=== PATIENT | female | born 2000 | race Caucasian/White ===

== ENCOUNTER 2018-06-09 19:30 | Inpatient (IN) ==
[2018-06-09] MEDS ORDERED: Naloxone 0.4 MG/ML INJ IVP PRN (22:32)
[2018-06-09] MEDS ORDERED: Ondansetron 4 MG/2 ML VIAL IVP PRN (22:36)
[2018-06-09 23:14] LABS: Basophils % 0.8 %; Eosinophils # 0.1 K/mcL (0.0-0.6); Eosinophils % 1.3 %; Hematocrit 37.7 % (35.3-44.9); Hemoglobin 12.2 g/dL (11.5-15.4); Immature Granulocytes % 0.5 % (0-4); Lymphocytes # 1.9 K/mcL (0.6-4.6); Lymphocytes % 49.2 %; Mean Corpuscular HGB Conc 32.4 g/dL (31.6-35.5); Mean Corpuscular Hemoglobin 27.9 pg (28.0-33.3); Mean Corpuscular Volume 86.1 fL (83.0-100.0); Monocytes # 0.5 K/mcL (0.0-1.3); Monocytes % 11.7 %; Neutrophils # 1.4 K/mcL (1.6-8.9); Platelet Count 222 K/mcL (140-400); Red Blood Count 4.38 M/mcL (3.82-4.97); Red Cell Distribution Width 15.2 % (11.5-14.5); Segmented Neutrophils % 36.5 %
[2018-06-09 23:26] LABS: INR 1.3; Prothrombin Time 14.6 Seconds (9.4-12.1)
[2018-06-09 23:29] LABS: Activated Partial Thrombo Time 40.4 Seconds (26.0-36.0)
[2018-06-09 23:37] LABS: Amylase 23 Units/L (29-103); Lipase 51 Units/L (11-82)
[2018-06-09 23:39] LABS: Alanine Aminotransferase > 500 Units/L (7-52); Albumin 2.6 g/dL (3.5-5.7); Albumin/Globulin Ratio 1.1 (1.1-2.2); Alkaline Phosphatase 252 Units/L (34-104); Aspartate Amino Transferase 832 Units/L (13-39); BUN/Creatinine Ratio 6 (6-26); Bilirubin,Direct 8.6 mg/dL (0.0-0.2); Bilirubin,Indirect 5.1 mg/dL (0.0-1.2); Bilirubin,Total 13.7 mg/dL (0.3-1.0); Blood Urea Nitrogen 3 mg/dL (6-20); Calcium 7.4 mg/dL (8.6-10.3); Carbon Dioxide 26 mEq/L (23-29); Chloride 106 mEq/L (98-107); Globulin 2.4 g/dL (2.4-3.5); Glucose 99 mg/dL (70-105); Magnesium 1.7 mg/dL (1.6-2.6); Osmolality,Calculated 283 (280-300); Potassium 3.5 mEq/L (3.5-5.1); Sodium 138 mEq/L (136-145); eGFR For Non-African Americans > 60 (> 60)
[2018-06-09 23:41] LABS: Platelet Estimate Normal (Normal); Reactive Lymphocytes Present (Not Present)
[2018-06-10 00:01] LABS: Hepatitis B Surface Antigen Nonreactive (Nonreactive); Hepatitis C Virus Antibody Nonreactive (Nonreactive)
--- NOTE | 2018-06-10 00:01 | Internal Med History&Physical ---
Date of Encounter: 06/09/18 Time of Encounter: 21:50 Internal Medicine - H&P: HPI Chief complaint: RUQ pain; jaundice Admitted From: Hospital to Hospital Transfer Plans for Post Hospital Care: Home History of present illness: Ms. Arriaga is a 18 year old female who presents to [facility] in transfer from [facility] for concerns of acute hepatitis and possible liver failure. Patient presented there with right upper quadrant abdominal pain and jaundice for several days. She has had some nausea, vomiting, and worsening jaundice. This prompted her to go to the ER where she had routine labs performed indicating acute hepatitis with possible hepatic failure. Phone calls ere made to the transfer center requesting transfer to [facility]. The case was discussed with the daytime hospitalist and Dr. Massey. Repeat labs were performed as requested by Dr. Massey. The patient was then transferred here to [facility] as n oted and requested by Dr. Massey and the daytime hospitalist. Upon arrival to [facility], I saw the patient at the bedside. She appears jaundiced, mildly dehydrated, and ill-appearing but nontoxic. She admits to heavy alcohol abuse since the age of 14 yo until last year. She has been essentially alcohol free since last year. However, since then, she has been using drugs in the form of snorting fentanyl, injecting ampheatmines and opiates, and oral opiates as well. She last used roughly a month ago she reports. However, her tox screen at [facility] was positive for opiates and amphetamines. She was also positive for marijuana. She denies any alcohol use presently. She does smoke. Her boyfriend is present at bedside, and they both confirm that he was recently hospitalized here with acute hepatitis A infection and chronic hepatitis C infection. She has never been tested for hepatitis A, B, or C. I reviewed her labs and imaging studies at [facility]. Her CT of the abdomen revealed normal liver, but she does have some mild pancreatitis findings on imaging. Of note, her lipase was normal, however. Furthermore, she is adamant that she has not had any alcohol use in over a year. She was honest and forthright with her IV drug abuse. I counseled patient and her boyfriend on the need to abstain from drugs and alcohol. Additionally, she and he would both benefit from hepatitis C treatment in the future should they remain abstinent of drugs and alcohol. Past Med Surg Social Fam HX - Past Medical History Attestation: Yes The following information was validated with the patient. Source: patient, other ([facility] records) Medical history: no medical history Additional medical history: IV drug abuse Psychiatric history: anxiety, depression - Past Surgical History Surgical History: other Additional surgical history: tonsilectomy - Social History Smoking Status: Current some day smoker Smokeless Tobacco Status: No Alcohol use: none Drug use: opiates, marijuana, methamphetamine, IV Drug Use Current living situation: Home - Independent Activity Level: Independent ambulation Recent Out of Country Travel Within the Last 8 Weeks: No - Family History Mother Living Status: Still Living Hx Family GI Disorders: No Father Living Status: Still Living Hx Family GI Disorders: No - Additional Family History Additional family history: exposed to boyfriend who was recently hospitalized with acute Hepatitis A infection and chronic Hepatitis C Internal Medicine - H&P: Meds Allergy/AdvReac Type Severity Reaction Status Date / Time No Known Allergies Allergy Verified 06/09/18 22:02 - Constitutional Constitutional: fatigue, malaise, no chills, no fever(s), no night sweats - EENT Eyes: no blurry vision, no change in vision Ears: no ear pain, no tinnitus Nose, mouth and throat: no nasal congestion, no sinus pressure, no sore throat - Cardiovascular Cardiovascular ROS IM: no chest pain, no dyspnea, no orthopnea, no syncope - Respiratory Respiratory: no cough, no hemoptysis, no chest congestion, no excessive phlegm production, no change in phlegm color - Gastrointestinal Gastrointestinal: abdominal pain (RUQ), constipation, heartburn, nausea, vomiting, no diarrhea, no hematemesis, no hematochezia, no melena - Genitourinary Genitourinary: abnormal menses, no dysuria, no flank pain, no hematuria - Musculoskeletal Musculoskeletal ROS IM: myalgias, no arthralgias, no back pain - Integumentary Integumentary IM: jaundice, no rash, no unusual bruising - Neurological Neurological ROS: no dizziness, no focal weakness, no frequent falls, no headache(s) - Psychiatric Psychiatric: no anxiety, no depression - Endocrine Endocrine IM: no polydipsia, no polyphagia, no polyuria - Hematologic/Lymphatic Hematologic/Lymphatic: no easy bruising - Allergic/Immunologic Allergic/Immunologic: no wheezing, no GI upset with certain foods - Constitutional Vitals: Temp Pulse Resp BP Pulse Ox 98.3 F 80 20 119/85 96 06/09/18 21:25 06/09/18 21:25 06/09/18 21:25 06/09/18 21:25 06/09/18 21:25 General appearance: Present: cooperative, mild distress, A&O X 3, answers questions appropriately Exam: In mild pain but noon-toxic; appears jaundiced - Head Head exam: Present: atraumatic, normal inspection - Eye Eye exam: Present: EOMI, PERRL, scleral icterus Pupils: Present: normal accommodation - ENT ENT exam: Present: mucous membranes dry, normal exam, normal oropharynx - Neck Neck exam general surgery: Present: full ROM, supple. Absent: tenderness, nuchal rigidity, thyromegaly - Respiratory Respiratory exam: Present: CTAB. Absent: chest wall tenderness, rales, respiratory distress, rhonchi, wheezes - Cardiovascular Cardiovascular exam: Present: RRR, +S1, +S2. Absent: diastolic murmur, systolic murmur - GI/Abdominal GI/Abdominal exam: Present: normal bowel sounds, tenderness (RUQ), no peritoneal signs. Absent: guarding, hepatomegaly, mass, rebound, splenomegaly - Extremities Exam Extremities exam: Present: full ROM, normal capillary refill, warm, radial pulses palpable and symmetrical. Absent: calf tenderness, pedal edema, tenderness - Back Exam Back exam: Present: normal inspection. Absent: CVA tenderness (L), CVA tenderness (R) - Neurological Exam Neurological exam: Present: alert, CN II-XII intact, oriented X3, no focal deficits, strengths equal and symetr throughout - Psychiatric Psychiatric exam: Present: normal affect, normal mood - Skin Skin exam: Present: dry, intact, warm Additional comments: jaundiced Internal Med - H&P Results - Labs CBC & Chem 7: 06/09/18 22:46 06/09/18 22:46 Labs: Short CBC 06/09/18 Range/Units 22:46 WBC 3.9 L (4.3-11.1) K/mcL Hgb 12.2 (11.5-15.4) g/dL Hct 37.7 (35.3-44.9) % Plt Count 222 (140-400) K/mcL Neutrophils # 1.4 L (1.6-8.9) K/mcL BMP 06/09/18 22:46 Sodium 138 Potassium 3.5 Chloride 106 Carbon Dioxide 26 BUN 3 L Creatinine 0.51 L Glucose 99 Calcium 7.4 L Liver Function 06/09/18 Range/Units 22:46 Total Bilirubin 13.7 H (0.3-1.0) mg/dL Direct Bilirubin 8.6 H (0.0-0.2) mg/dL AST 832 H (13-39) Units/L ALT > 500 H (7-52) Units/L Alkaline Phosphatase 252 H (34-104) Units/L Albumin 2.6 L (3.5-5.7) g/dL I reviewed her labs and CT report from [facility] and include the following: CT abdomen and pelvis: Findings consistent with pancreatitis and gallbladder wall thickening; liver appears normal without mass her biliary duct dilatation. Sodium 136 Potassium 3.3 Chloride 97 Carbon dioxide 29 BUN 5 Creatinine 0.49 Glucose 94 Lipase 166 Total bilirubin 14.9 Direct bilirubin 12.5 Alkaline phosphatase 348 AST 1347 ALT 1729 PT 13.8 INR 1.19 PTT 39.4 WBC 4.9 Hemoglobin 14.1 Hematocrit 43.1 Platelets 276 - Assessment and plan (1) Acute hepatitis Current Visit: Yes Status: Acute Assessment and plan: 1. Suspect acute Hepatitis A +/- Hepatitis C. 2. Will check Hepatitis serologies. 3. Will trend LFT's, PT/INR, and glucose. If coagulopathy worsens, she develops hypoglycamia, and/or bilirubin levels continue to climb, she will likely need transferred to a tertiary care medical center with transplant capabilities as she may develop fulminant hepatic failure. However, at this time, I do not suspect that and anticipate she will recover from suspected acute Hepatitis A infection. 4. Supportive care with IVF, nausea control, and non-opiate pain control. 5. Consult Dr. Massey/GI. 6. Will order GB U/S to better evaluate GB. 7. Surgery consult for GB if necessary, once hepatitis symptoms resolve. (2) Pancreatitis Current Visit: Yes Status: Acute Assessment and plan: 1. CT abdomen suggests pancreatitis but lipase is normal and exam does not suggest it. 2. Will trend amylase, lipase, and monitor abdominal exams serially. 3. Clear liquid diet only for now, along with IVF hydration. Qualifiers: Chronicity: acute Pancreatitis type: unspecified pancreatitis type Acute pancreatitis complication: no infection or necrosis Qualified Code(s): K85.90 - Acute pancreatitis without necrosis or infection, unspecified (3) DVT prophylaxis Current Visit: Yes Status: Acute Assessment and plan: 1. EPCD's. 2. No heparin or anti-coagulation due to coagulopathy of liver disease (mild).
[2018-06-10] MEDS: 0.9 % Sodium Chloride w KCl 20 MEQ/1,000 ML MLS IVC SCH ×2 (00:45→08:31)
[2018-06-10 00:56] LABS: Acetaminophen < 10 mcg/mL (10-20); Salicylate < 2.5 mg/dL (15.0-30.0)
[2018-06-10] MEDS: Ketorolac 15 MG/ML VIAL IVP PRN ×2 (01:00→06:31)
[2018-06-10 02:00] LABS: Hepatitis A Antibody IgM Reactive (Nonreactive)
[2018-06-10 02:01] LABS: Hepatitis B Core IgM Reactive (Nonreactive)
[2018-06-10 04:31] LABS: Basophils % 0.9 %; Eosinophils % 0.7 %; Hematocrit 38.1 % (35.3-44.9); Hemoglobin 12.2 g/dL (11.5-15.4); Immature Granulocytes % 0.4 % (0-4); Lymphocytes % 47.6 %; Mean Corpuscular Hemoglobin 27.7 pg (28.0-33.3); Mean Corpuscular Volume 86.4 fL (83.0-100.0); Mean Platelet Volume 9.7 fL (9.4-12.4); Monocytes # 0.4 K/mcL (0.0-1.3); Neutrophils # 1.9 K/mcL (1.6-8.9); Platelet Count 238 K/mcL (140-400); Red Blood Count 4.41 M/mcL (3.82-4.97); Red Cell Distribution Width 15.1 % (11.5-14.5); Segmented Neutrophils % 41.4 %
[2018-06-10 04:36] LABS: INR 1.3; Prothrombin Time 14.1 Seconds (9.4-12.1)
[2018-06-10 04:38] LABS: Lymphocytes # 2.1 K/mcL (0.6-4.6)
[2018-06-10 04:50] LABS: Albumin 2.9 g/dL (3.5-5.7); Albumin/Globulin Ratio 1.3 (1.1-2.2); Alkaline Phosphatase 262 Units/L (34-104); Aspartate Amino Transferase 823 Units/L (13-39); BUN/Creatinine Ratio 6 (6-26); Bilirubin,Direct 8.6 mg/dL (0.0-0.2); Bilirubin,Indirect 5.7 mg/dL (0.0-1.2); Bilirubin,Total 14.3 mg/dL (0.3-1.0); Blood Urea Nitrogen 3 mg/dL (6-20); Calcium 8.1 mg/dL (8.6-10.3); Carbon Dioxide 26 mEq/L (23-29); Chloride 106 mEq/L (98-107); Glucose 88 mg/dL (70-105); Osmolality,Calculated 278 (280-300); Potassium 3.7 mEq/L (3.5-5.1); Sodium 136 mEq/L (136-145); Total Protein 5.2 g/dL (6.4-8.9); eGFR For Non-African Americans > 60 (> 60)
[2018-06-10 04:51] LABS: Alanine Aminotransferase > 500 Units/L (7-52); Amylase 26 Units/L (29-103); Globulin 2.3 g/dL (2.4-3.5)
[2018-06-10 04:59] LABS: Platelet Estimate Normal (Normal); Reactive Lymphocytes Present (Not Present)
[2018-06-10] MEDS: Pantoprazole 40 MG VIAL IVP SCH ×2 (06:32→18:34)
--- NOTE | 2018-06-10 08:42 | Internal Med Progress Note ---
Hospitalist Progress Note - Encounter Date of Encounter: 06/10/18 Time of Encounter: 08:22 - Subjective Interval History: Patient seen and examined this morning. c/o RUQ pain. Denies fever, chills, N/V/D. No sob, bowel or urinary complain. - Exam Vitals: Temp Pulse Resp BP Pulse Ox 97.9 F 59 18 114/74 98 06/10/18 07:50 06/10/18 07:50 06/10/18 07:50 06/10/18 07:50 06/10/18 07:50 Exam: General: In no acute distress. Conversant. Respiratory exam: CTAB. no accessory muscle use, rales, rhonchi, wheezes Cardiovascular exam: RRR, +S1, +S2. no murmur, gallop, rubs. GI/Abdominal exam: Non-distended, normal bowel sounds, soft, no peritoneal signs.RUQ tenderness. No epigastric tenderness. Extremities exam: full ROM, no pedal edema, warm, pulses palpable in b/l lower extremities. no calf tenderness Neurological exam: CN II-XII intact, AO X3, no focal deficits. no pronater drift , facial droop, speech deficit Skin exam: No ulcer, purpura or ecchymosis. Sclera and skin jaundice. papular lesion on Rt leg which patient says she got form mosquito bites. No skin track dubon noted. - Assessment and Plan (1) Acute hepatitis Current Visit: Yes Status: Acute (2) Pancreatitis Current Visit: Yes Status: Acute (3) DVT prophylaxis Current Visit: Yes Status: Acute - Summary of Assessment and Plan Summary of Assessment and Plan: Acute hepatitis - Positive for Acute Hepatitis A and Hepatitis B possibly from IVDU vs Sexually transmitted. Boyfriend recently treated for Hepatitis A - f/u Hepatic panel, coags. If coagulopathy worsens, develops hypoglycamia, and/or bilirubin levels worsens, she will likely need transferred to a tertiary care. MELD Scoar 19 today. - c/w IVF, PPI and supportive care. - GI consulted - f/u [facility] for GB evaluation - Discussed about risk of IVDU and recreation drug use as well as precautions to prevent spread. CT abdomen suggestive of pancreatitis - lipase is normal. Exam unremarkable - Does not appear to have pancreatitis - Will start patient on diet DVT prophylaxis - EPCD's - Time Spent with Patient Total time spent is greater than 50% in coordination of care (as documented) at patient's floor/unit and/or counseling patient: Internal Medicine: Result - Labs CBC & Chem 7: 06/10/18 04:04 06/10/18 04:04 Labs: Short CBC 06/09/18 06/10/18 Range/Units 22:46 04:04 WBC 3.9 L 4.5 (4.3-11.1) K/mcL Hgb 12.2 12.2 (11.5-15.4) g/dL Hct 37.7 38.1 (35.3-44.9) % Plt Count 222 238 (140-400) K/mcL Neutrophils # 1.4 L 1.9 (1.6-8.9) K/mcL BMP 06/09/18 06/10/18 22:46 04:04 Sodium 138 136 Potassium 3.5 3.7 Chloride 106 106 Carbon Dioxide 26 26 BUN 3 L 3 L Creatinine 0.51 L 0.49 L Glucose 99 88 Calcium 7.4 L 8.1 L Liver Function 06/09/18 06/10/18 Range/Units 22:46 04:04 Total Bilirubin 13.7 H 14.3 H (0.3-1.0) mg/dL Direct Bilirubin 8.6 H 8.6 H (0.0-0.2) mg/dL AST 832 H 823 H (13-39) Units/L ALT > 500 H > 500 H (7-52) Units/L Alkaline Phosphatase 252 H 262 H (34-104) Units/L Albumin 2.6 L 2.9 L (3.5-5.7) g/dL - ABG Interpretation ABG results: PT/INR, D-dimer PT 14.1 Seconds (9.4-12.1) H 06/10/18 04:04 Consult Discharge Plan - Plan Referrals: NONE,PCP [Primary Care Provider] - (2) Pancreatitis Qualifiers: Chronicity: acute Pancreatitis type: unspecified pancreatitis type Acute pancreatitis complication: no infection or necrosis Qualified Code(s): K85.90 - Acute pancreatitis without necrosis or infection, unspecified
--- NOTE | 2018-06-10 09:45 | Gastroenterology Consult Note ---
Date of Encounter: 06/10/18 Time of Encounter: 09:43 - Assessment and plan (1) Acute hepatitis A Current Visit: Yes Status: Acute Assessment and plan: Patient presents with acute hepatitis with positive hepatitis A IgM antibody. Also has hepatitis B core IgM antibody so both could be contributing. Likely secondary to IV drug use. Hepatic labs are stable and clinically the patient appears to be improving. Recommend continued supportive therapy and avoid hepatotoxic drugs. Patient was counseled on the need to abstain from recreational drug use. (2) Acute hepatitis B Current Visit: Yes Status: Acute Assessment and plan: Acute hepatitis as above. Hepatitis B core IgM antibody was positive, hep B surface antigen was negative likely indicating the patient is in the window period. Patient appears clinically improving and hepatic labs are stable. No indication for acute treatment at this time however would continue to trend hepatic labs. If patient progresses towards fulminant liver failure or bilirubin remain significantly elevated for several weeks and then can consider treatment. Recommend outpatient follow-up in 2-3 weeks to continue to follow the patient's hepatic labs. Of note, changes seen on CT likely related to acute liver inflammation in the setting of hepatitis, lipase is negative so pancreatitis/gallbladder disease is highly unlikely. Will cancel RUQ US, start clear liquid diet, advance as tolerated. If patient can tolerate full liquid diet then ok to discharge from a GI standpoint - Time Spent With Patient Total time spent is greater than 50% in coordination of care (as documented) at patient's floor/unit and/or counseling patient: GI History of Present Illness - Data of Consult Patient: new to practice Consult date: 06/10/18 Requesting Physician: Vicenta Delgado MD - Consult Narrative Reason for consult: Acute hepatitis History of present illness: Ms. Arriaga is a 18 year old female with history of IV drug abuse and previous alcohol use presents with right upper quadrant pain and jaundice. Patient states that her symptoms began approximately 1 week ago with right upper quadrant pain and yellowing of her skin. She states she has never had anything like this before. She reports her boyfriend had similar symptoms about 2 weeks ago. She reports her right upper quadrant pain is improved from admission. She reports intermittent nausea but no vomiting. She denies diarrhea and reports mild constipation. She denies fever, chills, chest pain, shortness of breath, dysuria. Patient reports that she previously drank heavily for several years but has not drank in one year. She reports using recreational drugs including snorting opiates and intravenous use of methamphetamine. She reports her most recent IV drug use was approximately 6 weeks ago. Colonoscopy: None EGD: None Past Med Surg Social Fam HX - Past Medical History Medical history: no medical history Additional medical history: IV drug abuse Psychiatric history: anxiety, depression - Past Surgical History Surgical History: other Additional surgical history: tonsilectomy - Social History Smoking Status: Current some day smoker Smokeless Tobacco Status: No Alcohol use: none Drug use: opiates, marijuana, methamphetamine, IV Drug Use - Family History Mother Living Status: Still Living Hx Family GI Disorders: No Father Living Status: Still Living Hx Family GI Disorders: No All systems PM: reviewed and no additional remarkable complaints except as stated - Constitutional Vitals: Temp Pulse Resp BP Pulse Ox 97.9 F 65 18 114/74 98 06/10/18 07:50 06/10/18 08:49 06/10/18 07:50 06/10/18 07:50 06/10/18 07:50 General appearance: Present: A&O X 3, pleasant, no acute distress - Head Head exam: Present: atraumatic, normal inspection, normocephalic - Eye Eye exam: Present: EOMI, PERRL, scleral icterus (mild) - ENT ENT exam: Present: mucous membranes moist - Respiratory Respiratory exam: Present: CTAB. Absent: rales, rhonchi, wheezes - Cardiovascular Cardiovascular exam: Present: RRR. Absent: gallop, rubs, systolic murmur - GI/Abdominal GI/Abdominal exam: Present: normal bowel sounds, soft, tenderness (Right upper quadrant), no peritoneal signs. Absent: distended, hepatomegaly, rigid - Neurological Exam Neurological exam: Present: alert, CN II-XII intact, oriented X3, no focal deficits - Skin Skin exam: Present: dry, intact, warm Additional comments: No jaundice noted Results - Labs CBC & Chem 7: 06/10/18 04:04 06/10/18 04:04 Labs: Last Result Calcium 8.1 mg/dL (8.6-10.3) L 06/10/18 04:04 Salicylates < 2.5 mg/dL (15.0-30.0) L 06/09/18 22:46 Entire Visit Hgb 12.2 g/dL (11.5-15.4) 06/10/18 04:04 Hct 38.1 % (35.3-44.9) 06/10/18 04:04 PT 14.1 Seconds (9.4-12.1) H 06/10/18 04:04 Total Bilirubin 14.3 mg/dL (0.3-1.0) H 06/10/18 04:04 AST 823 Units/L (13-39) H 06/10/18 04:04 ALT > 500 Units/L (7-52) H 06/10/18 04:04 Amylase 26 Units/L (29-103) L 06/10/18 04:04 Lipase 57 Units/L (11-82) 06/10/18 04:04 Acetaminophen < 10 mcg/mL (10-20) L 06/09/18 22:46 - ABG ABG results: PT/INR, D-dimer PT 14.1 Seconds (9.4-12.1) H 06/10/18 04:04 Consult Discharge Plan - Plan Referrals: NONE,PCP [Primary Care Provider] -
[2018-06-10] MEDS ORDERED: D5% in 0.9% NACL 1,000 ML IVC SCH (14:00)
[2018-06-10 17:26] VITALS: BP 121/75
--- NOTE | 2018-06-10 21:45 | Discharge Summary ---
<Vidal August - Last Filed: 06/10/18 21:43> - NOTES TO OUTPATIENT PROVIDER Notes to Outpatient Provider: patient left hospital AMA Date of Encounter: 06/10/18 Time of Encounter: 20:00 - Discharge Diagnosis (1) Acute hepatitis Priority: Primary Status: Acute (2) Pancreatitis Priority: Secondary Status: Acute Qualifiers: Chronicity: acute Pancreatitis type: unspecified pancreatitis type Acute pancreatitis complication: no infection or necrosis Qualified Code(s): K85.90 - Acute pancreatitis without necrosis or infection, unspecified (3) DVT prophylaxis Priority: Secondary Status: Acute Hospital course: Around 20:15, received call from nurse to go see patient as she was wanting to leave against medical advice. I informed the nurse that I was doing admission and I would be there in about 10 minutes to see the patient and discussed the plan with her. When I got to the floor, I was informed that patient had already left against medical advice. I did not see or examine this patient. Discharge discussed with: nurse - Time Spent with Patient Total time spent providing and/or coordinating discharge services: Less than 30 minutes - Discharge Medications Home Medications: RX: No Known Home Drugs 06/10/18 [History] Allergies/Adverse Reactions: Allergy/AdvReac Type Severity Reaction Status Date / Time No Known Allergies Allergy Verified 06/09/18 22:02 Date of admission: 06/09/18 22:32 Primary care physician: Monika Landa, Consults: 06/09/18 22:35 Consult to Physician [CONS] Routine Consulting Provider: Arnol Massey Reason for Consult: acute hepatitis Call Completed: Yes Discharging clinician: Vidal August Anticipated date of discharge: 06/10/18 - Constitutional Vitals: Temp Pulse Resp BP Pulse Ox 97.8 F 77 18 121/75 98 06/10/18 10:55 06/10/18 10:55 06/10/18 17:22 06/10/18 17:22 06/10/18 10:55 Exam: Exam not done, as patient had already left the building - Patient Status Disposition: Left Against Medical Advice Condition: Undetermined Overall status at discharge: other (Patient left against medical advice) - Discharge Instructions Follow Up With: Monika Landa CNP [Primary Care Provider] - 06/20/18 2:00 pm (Please take the new patient packet with you filled out to your appointment. Also take with you your picture ID, Ins. Card, all medications including over the counter meds. Please show up 15 mins early. If you need to cancel your follow up appointment [facility] [phone] 24 hours prior to your appointment) <Lalito Sanchez - Last Filed: 06/11/18 01:35> Date of Encounter: 06/10/18 - Discharge Diagnosis (1) Acute hepatitis A Status: Acute (2) Acute hepatitis B Status: Acute Hospital course: Ms. Arriaga is a 18 year old female - Time Spent with Patient Total time spent providing and/or coordinating discharge services: Date of admission: 06/09/18 22:32 Primary care physician: Monika Landa, Consults: 06/09/18 22:35 Consult to Physician [CONS] Routine Consulting Provider: Arnol Massey Reason for Consult: acute hepatitis Call Completed: Yes - Constitutional Vitals: Temp Pulse Resp BP Pulse Ox 97.8 F 77 18 121/75 98 06/10/18 10:55 06/10/18 10:55 06/10/18 17:22 06/10/18 17:22 06/10/18 10:55 - Attending Attestation Dr. August informed me of the events and that patient left AMA before she or I could see her.
--- NOTE | 2018-06-11 07:28 | Electrocardiograph Report ---
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
== END 2018-06-10 20:15 | disposition left against medical advice (07) ==
LOC: 2NNU
PROVIDERS: ADMIT Internal Medicine; ATTEND Internal Medicine